=== PATIENT | male | born 2000 | race Two or more races ===

== ENCOUNTER 2023-11-29 20:58 | Emergency (ER) | payer OTHER ==
[~2023-11-29] VITALS: Ht 172.7 cm; Wt 72.6 kg
[2023-11-29] MEDS ORDERED: ONDANSETRON HCL 2 MG/ML VIAL IV ONE (22:45)
[2023-11-29] MEDS ORDERED: ONDANSETRON HCL 2 MG/ML VIAL ONE (22:53)
[2023-11-29] MEDS ORDERED: FAMOTIDINE/PF 20 MG/2 ML VIAL ONE (22:53)
[2023-11-29] MEDS ORDERED: FAMOTIDINE/PF 20 MG/2 ML VIAL IV PUSH ONE (23:00)
[2023-11-29] MEDS ORDERED: ACETAMINOPHEN 500 MG GEL..CAP PO ONE (23:07)
[2023-11-29 23:19] LABS: HEMATOCRIT 42.1 % (39.0-48.0); HEMOGLOBIN 14.5 g/dL (13-16.00); MEAN CELL VOLUME 83.9 fL (80.0-100.00); MEAN CORPUSCULAR HEMOGLOBIN 28.9 pg (27.00-32.0); MEAN CORPUSCULAR HGB CONC 34.4 g/dl (32.0-36.0); PLATELET COUNT 223 K/uL (150-450); RED BLOOD COUNT 5.02 M/uL (4.00-6.00); RED CELL DISTRIBUTION WIDTH 13.6 % (11.5-14.5)
[2023-11-29 23:29] LABS: URINE APPEARANCE Cloudy; URINE BILIRRUBIN Negative (NEGATIVE); URINE BLOOD Negative; URINE COLOR Yellow; URINE GLUCOSE Negative (NEGATIVE); URINE LEUKOCYTE Negative; URINE NITRATE Negative; URINE PROTEIN Trace (NEGATIVE)
[2023-11-29 23:33] LABS: URINE BACTERIA 6.2 uL (0.0-1933); URINE EPITHELIAL CELLS 1.5 uL (0.0-38.8); URINE WBC 5.3 uL (0.0-23.2)
[2023-11-29 23:35] LABS: CALCIUM 9.9 mg/dL (8.5-10.1); CREATININE SERUM 0.89 mg/dL (0.70-1.30); GFR 106.89; POTASSIUM 3.69 mEq/L (3.5-5.1)
[2023-11-29 23:35] LABS: URINE KETONE 40 (NEGATIVE); URINE RBC 0.7 uL (0.0-20.8)
[2023-11-30] MEDS ORDERED: BARIUM SULFATE 450 ML ORAL.SUSP PO ONE (01:16)
[2023-11-30] MEDS ORDERED: RINGERS SOLUTION,LACTATED 1,000 ML IV STA (01:28)
== END 2023-11-30 05:38 | disposition home or self-care (01) ==
LOC: ER 20:59
PROVIDERS: Emergency Medicine
DX: R14.3 Flatulence (principal); R14.1 Gas pain; R14.2 Eructation